=== PATIENT | female | born 1985 | race Caucasian/White ===

== ENCOUNTER 2021-01-10 22:26 | Emergency (ER) | payer MEDICAID ==
[~2021-01-10] VITALS: Ht 154.9 cm; Wt 83.0 kg
--- NOTE | 2021-01-10 22:40 | NUR ---
pt bibra c/o left sided chest pain that radiates to left back and neck. Pt aaox4 breathing evenly and unlabored. Pt states that the pain started at 6pm and that she feels a tightness in her neck muscle x4days. Pt attached to monitor and pox. MD at bedside. Pt given blanket and call light within reach
[2021-01-10] MEDS ORDERED: CARISOPRODOL 350 MG TABLET ONE (22:53)
[2021-01-10] MEDS ORDERED: DEXAMETHASONE SOD PHOSPHATE 10 MG/ML VIAL ONE (22:53)
[2021-01-10] MEDS ORDERED: KETOROLAC TROMETHAMINE INJ 60 MG/2 ML VIAL IM ONE ×2 (22:53→23:00)
[2021-01-10] MEDS ORDERED: MORPHINE SULFATE INJ 2 MG/ML DISP.SYRIN ONE (22:54)
[2021-01-10] MEDS ORDERED: MORPHINE SULFATE INJ 2 MG/ML DISP.SYRIN IM ONE (23:00)
[2021-01-10] MEDS ORDERED: CARISOPRODOL 350 MG TABLET PO ONE (23:00)
[2021-01-10] MEDS ORDERED: DEXAMETHASONE SOD PHOSPHATE 4 MG/ML VIAL IM ONE (23:00)
[2021-01-10] MEDS ORDERED: PRED50TA PO (23:12)
[2021-01-10] MEDS ORDERED: CYCL5TAB PO (23:12)
[2021-01-10] MEDS ORDERED: HYDR-3972 PO (23:12)
[2021-01-10] MEDS ORDERED: IBUP-1957 PO (23:12)
--- NOTE | 2021-01-10 23:18 | NUR ---
Patient discharged to home in stable condition. Written and verbal after care instructions given. Patient verbalizes understanding of instruction. Pt ambulatory with a steady gait
[2021-01-10 23:23] VITALS: BP 132/72
== END 2021-01-10 23:18 | disposition home or self-care (01) ==
LOC: ER 22:26
DX: M62.838 Other muscle spasm (principal); M54.12 Radiculopathy, cervical region; Z79.899 Other long term (current) drug therapy
CPT/HCPCS: 93005; 96372 ×2; 99284; J1100; J1885; J2270